=== PATIENT | male | born 1945 | race Caucasian/White ===

== ENCOUNTER 2016-05-09 17:45 | Inpatient (IN) | payer OTHER ==
[~2016-05-09] VITALS: Ht 162.6 cm; Wt 59.0 kg
[2016-05-09 17:50] VITALS: BP 131/76; PULSE 124; RESP 16; TEMP 99.1
[2016-05-09 18:17] LABS: MEAN CORPUSCULAR HEMOGLOBIN 31 pg (27-31)
[2016-05-09 18:20] LABS: MEAN CORPUSCULAR HGB CONC 35 % (32-36)
[2016-05-09 18:26] LABS: HEMATOCRIT 30.7 % (36-54); HEMOGLOBIN 10.6 g/dL (14.0-18.0); MEAN CORPUSCULAR VOLUME 90 fL (79.0-98.0); PLATELET COUNT (AUTO) 171 K/uL (130-430); RED BLOOD CELL COUNT(AUTO) 3.43 MIL/uL (4.2-6.2); WHITE BLOOD COUNT (AUTO) 17.1 K/uL (4.8-10.8)
[2016-05-09] MEDS ORDERED: PROC10TA I.M. (18:28)
[2016-05-09] MEDS ORDERED: DULR10 RC (18:28)
[2016-05-09] MEDS ORDERED: NA P118E RC (18:28)
[2016-05-09] MEDS ORDERED: MEGE400O PO (18:28)
[2016-05-09] MEDS ORDERED: MAGN400O4 PO (18:28)
[2016-05-09] MEDS ORDERED: TRAM50TA92 PO (18:28)
[2016-05-09 18:31] LABS: ANION GAP 12 (5-15); CALCIUM 8.6 mg/dL (8.4-11.0); CHLORIDE 112 mmol/L (98-107); CREATININE 2.73 mg/dL (0.55-1.30); GLUCOSE 136 mg/dL (70-99); INR 1.1 (0.80-1.20); POTASSIUM 3.5 mmol/L (3.5-5.1); PROTHROMBIN TIME 11.5 SECS (9.5-12.5); SODIUM SERUM 144 mmol/L (136-145); UREA NITROGEN, BLOOD 44 mg/dL (8-21)
[2016-05-09 18:34] LABS: ALANINE AMINOTRANSFERASE 60 U/L (12-78); ALBUMIN 1.7 g/dL (3.4-4.8); ASPARTATE AMINOTRANSFERASE 60 U/L (10-37); TOTAL BILIRUBIN 2.1 mg/dL (0.0-1.0); TOTAL PROTEIN, SERUM 7.3 g/dL (6.4-8.3)
[2016-05-09 18:44] LABS: ATYPICAL LYMPHOCYTES % 0 % (0-0); BAND % (MANUAL) 15 % (0-6); BASOPHILS % (MANUAL) 0 % (0-2); EOSINOPHILS % (MANUAL) 0 % (0-7); LYMPHOCYTES % (MANUAL) 2 % (20-46); MONOCYTES % (MANUAL) 5 % (0-11)
[2016-05-09 18:52] LABS: BILIRUBIN,URINE NEGATIVE (NEGATIVE); BLOOD, URINE 2+ (NEGATIVE); CLARITY/URINE CLOUDY (CLEAR); COLOR,URINE YELLOW (YELLOW); GLUCOSE,URINE NEGATIVE (NEGATIVE); KETONES,URINE NEGATIVE (NEGATIVE); LEUKOCYTE ESTERASE ,URINE 3+ (NEGATIVE); NITRITE, URINE POSITIVE (NEGATIVE); PROTEIN URINE TRACE (NEGATIVE)
[2016-05-09] MEDS ORDERED: NACL 0.9% 1,000 ML IV ONE (19:00)
[2016-05-09] MEDS ORDERED: LEVOFLOXACIN 500 MG/D5W 100 ML IV ONE (19:00)
[2016-05-09 19:08] LABS: BACTERIA,URINE MANY /HPF (None Seen); WBC,URINE >100 /HPF (0-3)
[2016-05-09 19:09] LABS: MUCUS,URINE None Seen /LPF (None Seen); URINE AMORPHOUS URATE 2+ /HPF (None Seen)
[2016-05-09] MEDS ORDERED: MILK OF MAGNESIA 30 ML UDC PO PRN (19:45)
[2016-05-09] MEDS ORDERED: NA PHOS,M-B/NA PHOS,DI-BA 118 ML (FLEET ENEMA) RC PRN (19:45)
[2016-05-09] MEDS ORDERED: traMADol HCL HCL 50 MG TABLET (ULTRAM) PO PRN (19:45)
[2016-05-09] MEDS ORDERED: PROCHLORPERAZINE MALEATE 10 MG TABLET PO PRN (19:45)
[2016-05-09] MEDS ORDERED: BISACODYL 10 MG/SUPPOSITORY RC PRN (19:45)
[2016-05-09 20:25] VITALS: BP 113/67; PULSE 105; RESP 20; TEMP 98.7; O2SAT 96
[2016-05-09] MEDS ORDERED: KCL 20 mEq in 100 mL (PREMIX) 100 ML IV ONE (21:35)
[2016-05-09] MEDS: KCL 20 mEq in 0.45% NS 1000 mL 1,000 ML IV SCH (22:08)
[2016-05-09] MEDS: MEROPENEM 500 MG IVPB PREMIX 50 ML IV SCH (22:09)
[2016-05-09] MEDS: MEGESTROL ACETATE 400 MG/10 ML UDC PO SCH (22:26)
[2016-05-10 00:58] VITALS: BP_SYST 103; BP_SYST 129; BP_DIAS 54; BP_DIAS 58; PULSE 57; PULSE 87; RESP 17; RESP 18; TEMP 96.6; O2SAT 94; O2SAT 97
[2016-05-10 04:00] VITALS: BP 111/63; PULSE 75; RESP 18; TEMP 97.6; O2SAT 98
[2016-05-10] MEDS: MEROPENEM 500 MG IVPB PREMIX 50 ML IV SCH (05:20)
[2016-05-10 07:34] LABS: BASOPHILS % (AUTO) 0.1 % (0.0-2.0); EOSINOPHILS # (AUTO) 0.1 K/uL (0.0-0.4); EOSINOPHILS % (AUTO) 0.6 % (0.0-4.0); HEMATOCRIT 29.5 % (36-54); HEMOGLOBIN 9.9 g/dL (14.0-18.0); LYMPHOCYTES # (AUTO) 0.5 K/uL (1.0-5.5); LYMPHOCYTES % (AUTO) 3.1 % (20.5-51.5); MEAN CORPUSCULAR HEMOGLOBIN 31 pg (27-31); MEAN CORPUSCULAR HGB CONC 34 % (32-36); MEAN CORPUSCULAR VOLUME 92 fL (79.0-98.0); MONOCYTES # (AUTO) 0.9 K/uL (0.0-1.0); MONOCYTES % (AUTO) 5.3 % (1.7-9.3); NEUTROPHILS # (AUTO) 14.8 K/uL (1.8-7.7); NEUTROPHILS % (AUTO) 90.9 % (40.0-70.0); PLATELET COUNT (AUTO) 149 K/uL (130-430); RED BLOOD CELL COUNT(AUTO) 3.21 MIL/uL (4.2-6.2); RED CELL DISTRIBUTION WIDTH 14.3 % (9.0-15.0); WHITE BLOOD COUNT (AUTO) 16.3 K/uL (4.8-10.8)
[2016-05-10 07:48] LABS: ANION GAP 7 (5-15); CALCIUM 9.1 mg/dL (8.4-11.0); CHLORIDE 119 mmol/L (98-107); GLUCOSE 108 mg/dL (70-99); POTASSIUM 3.8 mmol/L (3.5-5.1); SODIUM SERUM 152 mmol/L (136-145); UREA NITROGEN, BLOOD 37 mg/dL (8-21)
[2016-05-10 08:00] VITALS: BP 146/78; PULSE 79; RESP 17; TEMP 97.4; O2SAT 97
[2016-05-10] MEDS: MEGESTROL ACETATE 400 MG/10 ML UDC PO SCH ×2 (08:55→20:15)
[2016-05-10] MEDS: KCL 20 mEq in 0.45% NS 1000 mL 1,000 ML IV SCH (11:48)
[2016-05-10 12:00] VITALS: BP 142/80; PULSE 83; RESP 20; TEMP 98.6; O2SAT 97
[2016-05-10] MEDS ORDERED: GENTAMICIN 100 mg/50 mL NS 50 ML IV ONE (12:00)
[2016-05-10] MEDS ORDERED: CEFEPIME 1 GM in D5W 50 ML IV ONE (13:00)
[2016-05-10 16:00] VITALS: BP 150/89; PULSE 77; RESP 21; TEMP 97.2; O2SAT 98
[2016-05-10 20:00] VITALS: BP 110/65; PULSE 99; RESP 18; TEMP 96.8; O2SAT 96
[2016-05-11 00:31] VITALS: BP 120/70; PULSE 69; RESP 17; TEMP 97.1; O2SAT 91
[2016-05-11] MEDS: KCL 20 mEq in 0.45% NS 1000 mL 1,000 ML IV SCH ×2 (00:50→15:07)
[2016-05-11 05:12] VITALS: BP 111/63; PULSE 72; RESP 17; TEMP 97.2; O2SAT 89
[2016-05-11 07:10] LABS: HEMATOCRIT 28.6 % (36-54); HEMOGLOBIN 9.6 g/dL (14.0-18.0); MEAN CORPUSCULAR HEMOGLOBIN 31 pg (27-31); MEAN CORPUSCULAR HGB CONC 34 % (32-36); MEAN CORPUSCULAR VOLUME 92 fL (79.0-98.0); PLATELET COUNT (AUTO) 146 K/uL (130-430); RED CELL DISTRIBUTION WIDTH 14.1 % (9.0-15.0)
[2016-05-11 07:18] LABS: WHITE BLOOD COUNT (AUTO) 11.6 K/uL (4.8-10.8)
[2016-05-11 07:32] LABS: ANION GAP 5 (5-15); CALCIUM 8.6 mg/dL (8.4-11.0); CHLORIDE 114 mmol/L (98-107); CREATININE 1.59 mg/dL (0.55-1.30); GLUCOSE 87 mg/dL (70-99); POTASSIUM 3.4 mmol/L (3.5-5.1); SODIUM SERUM 145 mmol/L (136-145); UREA NITROGEN, BLOOD 25 mg/dL (8-21)
[2016-05-11 08:00] VITALS: BP 147/84; PULSE 79; RESP 17; TEMP 97.6; O2SAT 98
[2016-05-11] MEDS: MEGESTROL ACETATE 400 MG/10 ML UDC PO SCH ×2 (09:00→21:27)
[2016-05-11] MEDS: CEFEPIME 1 GM in D5W 50 ML IV SCH (09:00)
[2016-05-11 09:42] LABS: ATYPICAL LYMPHOCYTES % 0 % (0-0); BAND % (MANUAL) 0 % (0-6); BASOPHILS % (MANUAL) 0 % (0-2); EOSINOPHILS % (MANUAL) 1 % (0-7); LYMPHOCYTES % (MANUAL) 12 % (20-46); MONOCYTES % (MANUAL) 9 % (0-11)
[2016-05-11 12:26] VITALS: BP 147/82; PULSE 73; RESP 16; TEMP 97.6; O2SAT 96
[2016-05-11] MEDS ORDERED: POTASSIUM CHLORIDE 40 MEQ in NS 250 ML IV ONE (14:15)
[2016-05-11 15:22] VITALS: BP 126/67; PULSE 74; RESP 16; TEMP 97.5; O2SAT 96
[2016-05-11 15:35] VITALS: Ht 162.6 cm; Wt 59.0 kg
[2016-05-11 20:14] VITALS: BP 132/71; PULSE 75; RESP 18; TEMP 98.2; O2SAT 97
[2016-05-12 01:01] VITALS: BP 126/69; PULSE 70; RESP 17; TEMP 98.6; O2SAT 96
[2016-05-12] MEDS: KCL 20 mEq in 0.45% NS 1000 mL 1,000 ML IV SCH ×2 (05:54→17:49)
[2016-05-12 05:55] VITALS: BP 130/66; PULSE 68; RESP 17; TEMP 98; O2SAT 99
[2016-05-12 08:00] VITALS: BP 143/87; PULSE 89; RESP 17; TEMP 97.9; O2SAT 98
[2016-05-12] MEDS: MEGESTROL ACETATE 400 MG/10 ML UDC PO SCH ×2 (09:50→21:50)
[2016-05-12] MEDS: CEFEPIME 1 GM in D5W 50 ML IV SCH (09:51)
[2016-05-12 11:43] VITALS: BP 137/78; PULSE 83; RESP 22; TEMP 98.5; O2SAT 98
[2016-05-12 16:04] VITALS: BP 138/72; PULSE 72; RESP 20; TEMP 98.2; O2SAT 97
[2016-05-12 23:30] VITALS: BP 135/71; PULSE 58; RESP 16; TEMP 97.6; O2SAT 97
[2016-05-13 03:52] VITALS: BP 112/65; PULSE 64; RESP 16; TEMP 97; O2SAT 98
[2016-05-13] MEDS: KCL 20 mEq in 0.45% NS 1000 mL 1,000 ML IV SCH (05:50)
[2016-05-13 08:00] VITALS: BP 114/62; PULSE 80; RESP 17; TEMP 98.2; O2SAT 98
[2016-05-13] MEDS: MEGESTROL ACETATE 400 MG/10 ML UDC PO SCH (10:06)
[2016-05-13] MEDS: CEFEPIME 1 GM in D5W 50 ML IV SCH (10:06)
[2016-05-13 12:06] VITALS: BP 109/58; PULSE 77; RESP 18; TEMP 97.9; O2SAT 98
[2016-05-13 15:40] VITALS: BP 109/58; PULSE 77; RESP 18; TEMP 97.9; O2SAT 98
[2016-05-13 16:09] VITALS: BP 125/68; PULSE 85; RESP 18; TEMP 98.6; O2SAT 98
[2016-05-13] MEDS ORDERED: LACTOBACILLUS RHAMNOSUS GG 1 CAP CAPSULE PO SCH (21:00)
[2016-05-14] MEDS ORDERED: LEVOFLOXACIN 250 MG TABLET PO SCH (10:00)
== END 2016-05-13 16:51 | DRG 720 ==
LOC: SED 17:45 → STU 19:38
PROVIDERS: ADMIT Family Medicine; ATTEND Family Medicine
DX: A41.59 Other Gram-negative sepsis (principal); N17.0 Acute kidney failure with tubular necrosis; E43 Unspecified severe protein-calorie malnutrition; I69.351 Hemiplegia and hemiparesis following cerebral infarction affecting right dominant side; N39.0 Urinary tract infection, site not specified; D63.8 Anemia in other chronic diseases classified elsewhere; E86.0 Dehydration; N12 Tubulo-interstitial nephritis, not specified as acute or chronic; I12.9 Hypertensive chronic kidney disease with stage 1 through stage 4 chronic kidney disease, or unspecified chronic kidney disease; N18.9 Chronic kidney disease, unspecified; Z88.0 Allergy status to penicillin; Z79.899 Other long term (current) drug therapy; Z68.22 Body mass index [BMI] 22.0-22.9, adult
CPT/HCPCS: 36415; 71010; 74000-TC; 80048; 80053; 81000-TC; 83605; 83874; 84484; 85007; 85025; 85027; 85610-TC; 85730-TC; 87040-TC; 87081; 87086; 87186-TC; 93005; 96365; 99291; J0692; J1580; J1956; J2185; J3480; J7030; J7050; J7060; Q0164

== ENCOUNTER 2018-02-28 05:23 | Inpatient (IN) | payer OTHER ==
[~2018-02-28] VITALS: Ht 162.6 cm; Wt 68.5 kg
[2018-02-28 05:23] VITALS: BP_SYST 149
[~2018-02-28 05:23] MED LIST: DULR10 RC; MEGE400O PO; MOM PO; NA P118E RC; PROC10TA13 I.M.; TRAM50TA92 PO
[2018-02-28] MEDS ORDERED: ACET325C PO (05:48)
[2018-02-28] MEDS ORDERED: ACET-2165 PO (05:49)
[2018-02-28] MEDS ORDERED: DOCU250C14 PO (05:50)
[2018-02-28] MEDS ORDERED: NOR10 PO (05:52)
[2018-02-28] MEDS ORDERED: FAMO40TA71 PO (05:53)
[2018-02-28] MEDS ORDERED: SENN8.6T19 PO (05:53)
[2018-02-28] MEDS ORDERED: PANTOPRAZOLE SODIUM 40 MG/VIAL (PROTONIX) IVP ONE (06:00)
[2018-02-28] MEDS ORDERED: ONDANSETRON HCL 4 MG/2 ML VIAL IVP ONE (06:00)
[2018-02-28] MEDS ORDERED: NACL 0.9% 1,000 ML IV ONE (06:00)
[2018-02-28 06:09] LABS: BASOPHILS # (AUTO) 0.1 K/uL (0.0-0.2); BASOPHILS % (AUTO) 0.5 % (0.0-2.0); HEMATOCRIT 45.7 % (36-54); HEMOGLOBIN 15.3 g/dL (14.0-18.0); LYMPHOCYTES # (AUTO) 0.5 K/uL (1.0-5.5); LYMPHOCYTES % (AUTO) 3.9 % (20.5-51.5); MEAN CORPUSCULAR HEMOGLOBIN 31 pg (27-31); MEAN CORPUSCULAR HGB CONC 33 % (32-36); MEAN CORPUSCULAR VOLUME 93 fL (79.0-98.0); MONOCYTES # (AUTO) 0.3 K/uL (0.0-1.0); MONOCYTES % (AUTO) 1.9 % (1.7-9.3); NEUTROPHILS # (AUTO) 12.6 K/uL (1.8-7.7); NEUTROPHILS % (AUTO) 93.7 % (40.0-70.0); PLATELET COUNT (AUTO) 484 K/uL (130-430); RED BLOOD CELL COUNT(AUTO) 4.94 MIL/uL (4.2-6.2); RED CELL DISTRIBUTION WIDTH 12.3 % (9.0-15.0); WHITE BLOOD COUNT (AUTO) 13.5 K/uL (4.8-10.8)
[2018-02-28] MEDS ORDERED: LEVOFLOXACIN 500 MG/D5W 100 ML IV ONE (06:15)
[2018-02-28 06:16] LABS: CHLORIDE 103 mmol/L (98-107); POTASSIUM 3.7 mmol/L (3.5-5.1); UREA NITROGEN, BLOOD 23 mg/dL (8-21)
[2018-02-28 06:17] LABS: BILIRUBIN,URINE NEGATIVE (NEGATIVE); BLOOD, URINE 2+ (NEGATIVE); COLOR,URINE YELLOW (YELLOW); GLUCOSE,URINE NEGATIVE (NEGATIVE); KETONES,URINE NEGATIVE (NEGATIVE); LEUKOCYTE ESTERASE ,URINE 3+ (NEGATIVE); NITRITE, URINE POSITIVE (NEGATIVE); PH,URINE 6.5 (5.0-8.0); PROTEIN URINE NEGATIVE (NEGATIVE); UROBILINOGEN,URINE 0.2 (0.2-1.0)
[2018-02-28 06:17] LABS: ALBUMIN 3.4 g/dL (3.4-4.8)
[2018-02-28 06:22] LABS: ANION GAP 11 (5-15); CALCIUM 9.7 mg/dL (8.4-11.0); CREATININE 1.54 mg/dL (0.55-1.30); GLUCOSE 190 mg/dL (70-99); SODIUM SERUM 139 mmol/L (136-145)
[2018-02-28 06:25] LABS: BACTERIA,URINE MODERATE /HPF (None Seen); RBC,URINE 20-50 /HPF (0-3); WBC,URINE 80-100 /HPF (0-3)
[2018-02-28 06:26] LABS: ALANINE AMINOTRANSFERASE 30 U/L (12-78); ASPARTATE AMINOTRANSFERASE 15 U/L (10-37); TOTAL BILIRUBIN 0.4 mg/dL (0.0-1.0)
[2018-02-28 06:30] LABS: PROTHROMBIN TIME 10.4 SECS (9.5-12.5)
[2018-02-28 06:50] LABS: CLARITY/URINE SLIGHTLY HAZY (CLEAR)
[2018-02-28] MEDS ORDERED: KCL 20 mEq in D5/0.45NS 1000mL 1,000 ML IV SCH (07:00)
[2018-02-28] MEDS ORDERED: ONDANSETRON HCL 4 MG/2 ML VIAL IVP PRN (07:00)
[2018-02-28] MEDS ORDERED: NACL 0.9% 1,500 ML IV ONE (07:15)
[2018-02-28 07:45] VITALS: BP_SYST 121
[2018-02-28] MEDS: KCL 20 mEq in D5/0.45NS 1000mL 1,000 ML IV SCH ×2 (10:19→20:18)
[2018-02-28 11:54] VITALS: BP_SYST 113
[2018-02-28 12:47] VITALS: BP_SYST 122
[2018-02-28 16:25] VITALS: BP_SYST 119
[2018-02-28 19:15] VITALS: BP_SYST 122
[2018-02-28] MEDS: PANTOPRAZOLE SODIUM 40 MG/VIAL (PROTONIX) IVP SCH (20:18)
[2018-03-01 01:34] VITALS: BP_SYST 109
[2018-03-01] MEDS: KCL 20 mEq in D5/0.45NS 1000mL 1,000 ML IV SCH ×2 (06:15→15:33)
[2018-03-01 06:52] LABS: ANION GAP 5 (5-15); CHLORIDE 111 mmol/L (98-107); CREATININE 1.16 mg/dL (0.55-1.30); GLUCOSE 103 mg/dL (70-99); POTASSIUM 4.4 mmol/L (3.5-5.1); SODIUM SERUM 142 mmol/L (136-145); UREA NITROGEN, BLOOD 11 mg/dL (8-21)
[2018-03-01 06:55] LABS: BASOPHILS # (AUTO) 0.1 K/uL (0.0-0.2); BASOPHILS % (AUTO) 1.4 % (0.0-2.0); EOSINOPHILS # (AUTO) 0.2 K/uL (0.0-0.4); HEMATOCRIT 38.7 % (36-54); HEMOGLOBIN 12.6 g/dL (14.0-18.0); LYMPHOCYTES % (AUTO) 21.9 % (20.5-51.5); MEAN CORPUSCULAR HEMOGLOBIN 30 pg (27-31); MEAN CORPUSCULAR HGB CONC 33 % (32-36); MEAN CORPUSCULAR VOLUME 94 fL (79.0-98.0); MONOCYTES # (AUTO) 0.6 K/uL (0.0-1.0); MONOCYTES % (AUTO) 6.6 % (1.7-9.3); NEUTROPHILS # (AUTO) 6.2 K/uL (1.8-7.7); NEUTROPHILS % (AUTO) 68.1 % (40.0-70.0); PLATELET COUNT (AUTO) 372 K/uL (130-430); RED BLOOD CELL COUNT(AUTO) 4.13 MIL/uL (4.2-6.2); RED CELL DISTRIBUTION WIDTH 12.2 % (9.0-15.0); WHITE BLOOD COUNT (AUTO) 9.1 K/uL (4.8-10.8)
[2018-03-01] MEDS: MIDAZOLAM HCL 5 MG/5 ML VIAL ONE ×3 (07:16→08:14)
[2018-03-01] MEDS: MEPERIDINE HCL/PF 25 MG/ML DISP.SYRIN ONE ×4 (07:16→08:14)
[2018-03-01] MEDS ORDERED: SIMETHICONE 40 MG/0.6 ML ML ONE (07:17)
[2018-03-01] MEDS ORDERED: MEPERIDINE HCL/PF 25 MG/ML DISP.SYRIN ONE (07:17)
[2018-03-01 08:00] VITALS: BP_SYST 116
[2018-03-01] MEDS: PANTOPRAZOLE SODIUM 40 MG/VIAL (PROTONIX) IVP SCH ×2 (09:55→20:31)
[2018-03-01 12:02] VITALS: BP_SYST 119
[2018-03-01] MEDS: LEVOFLOXACIN 500 MG/D5W 100 ML IV SCH (13:47)
[2018-03-01 16:02] VITALS: BP_SYST 130
[2018-03-01 19:10] VITALS: BP_SYST 111
[2018-03-01 23:15] VITALS: BP_SYST 115
[2018-03-02] MEDS: KCL 20 mEq in D5/0.45NS 1000mL 1,000 ML IV SCH ×3 (05:44→21:41)
[2018-03-02 07:08] LABS: BASOPHILS % (AUTO) 0.6 % (0.0-2.0); EOSINOPHILS # (AUTO) 0.3 K/uL (0.0-0.4); EOSINOPHILS % (AUTO) 3.8 % (0.0-4.0); HEMATOCRIT 37.7 % (36-54); HEMOGLOBIN 12.8 g/dL (14.0-18.0); LYMPHOCYTES # (AUTO) 1.5 K/uL (1.0-5.5); LYMPHOCYTES % (AUTO) 19.1 % (20.5-51.5); MEAN CORPUSCULAR HEMOGLOBIN 31 pg (27-31); MEAN CORPUSCULAR HGB CONC 34 % (32-36); MEAN CORPUSCULAR VOLUME 92 fL (79.0-98.0); MONOCYTES # (AUTO) 0.7 K/uL (0.0-1.0); MONOCYTES % (AUTO) 8.5 % (1.7-9.3); NEUTROPHILS # (AUTO) 5.6 K/uL (1.8-7.7); PLATELET COUNT (AUTO) 291 K/uL (130-430); RED BLOOD CELL COUNT(AUTO) 4.12 MIL/uL (4.2-6.2); RED CELL DISTRIBUTION WIDTH 12.2 % (9.0-15.0); WHITE BLOOD COUNT (AUTO) 8.1 K/uL (4.8-10.8)
[2018-03-02 07:09] LABS: ANION GAP 8 (5-15); CALCIUM 9.1 mg/dL (8.4-11.0); CHLORIDE 106 mmol/L (98-107); CREATININE 1.26 mg/dL (0.55-1.30); GLUCOSE 101 mg/dL (70-99); SODIUM SERUM 140 mmol/L (136-145); UREA NITROGEN, BLOOD 13 mg/dL (8-21)
[2018-03-02 08:00] VITALS: BP_SYST 132
[2018-03-02] MEDS: PANTOPRAZOLE SODIUM 40 MG/VIAL (PROTONIX) IVP SCH ×2 (08:54→20:30)
[2018-03-02 12:02] VITALS: BP_SYST 121
[2018-03-02] MEDS: LEVOFLOXACIN 500 MG/D5W 100 ML IV SCH (12:44)
[2018-03-02 16:02] VITALS: BP_SYST 138
[2018-03-02] MEDS: SULFAMETHOXAZOLE/TRIMETHOPR DS 1 TABLET PO SCH (20:30)
[2018-03-02 20:57] VITALS: BP_SYST 132
[2018-03-03 00:10] VITALS: BP_SYST 107
[2018-03-03] MEDS: KCL 20 mEq in D5/0.45NS 1000mL 1,000 ML IV SCH ×2 (02:56→15:08)
[2018-03-03 06:51] LABS: ANION GAP 8 (5-15); CHLORIDE 105 mmol/L (98-107); CREATININE 1.32 mg/dL (0.55-1.30); GLUCOSE 91 mg/dL (70-99); POTASSIUM 3.9 mmol/L (3.5-5.1); SODIUM SERUM 140 mmol/L (136-145); UREA NITROGEN, BLOOD 18 mg/dL (8-21)
[2018-03-03 06:56] LABS: BASOPHILS # (AUTO) 0.1 K/uL (0.0-0.2); BASOPHILS % (AUTO) 1.8 % (0.0-2.0); EOSINOPHILS # (AUTO) 0.2 K/uL (0.0-0.4); EOSINOPHILS % (AUTO) 3.2 % (0.0-4.0); HEMATOCRIT 38.4 % (36-54); HEMOGLOBIN 12.5 g/dL (14.0-18.0); LYMPHOCYTES # (AUTO) 1.4 K/uL (1.0-5.5); LYMPHOCYTES % (AUTO) 18.8 % (20.5-51.5); MEAN CORPUSCULAR HEMOGLOBIN 31 pg (27-31); MEAN CORPUSCULAR HGB CONC 33 % (32-36); MEAN CORPUSCULAR VOLUME 93 fL (79.0-98.0); MONOCYTES # (AUTO) 0.6 K/uL (0.0-1.0); MONOCYTES % (AUTO) 8.1 % (1.7-9.3); NEUTROPHILS # (AUTO) 5.1 K/uL (1.8-7.7); NEUTROPHILS % (AUTO) 68.1 % (40.0-70.0); PLATELET COUNT (AUTO) 293 K/uL (130-430); RED BLOOD CELL COUNT(AUTO) 4.11 MIL/uL (4.2-6.2); RED CELL DISTRIBUTION WIDTH 12.2 % (9.0-15.0); WHITE BLOOD COUNT (AUTO) 7.4 K/uL (4.8-10.8)
[2018-03-03 08:08] VITALS: BP_SYST 129
[2018-03-03] MEDS: SULFAMETHOXAZOLE/TRIMETHOPR DS 1 TABLET PO SCH (08:48)
[2018-03-03] MEDS: PANTOPRAZOLE SODIUM 40 MG/VIAL (PROTONIX) IVP SCH (08:48)
[2018-03-03 12:02] VITALS: BP_SYST 117
[2018-03-03 15:15] VITALS: BP_SYST 113
[2018-03-03 19:25] VITALS: BP_SYST 126
[2018-03-03 20:00] VITALS: BP_SYST 126
== END 2018-03-03 20:15 | DRG 241 ==
LOC: SED 05:23 → SMU 06:55
PROVIDERS: ADMIT Family Medicine; ATTEND Family Medicine
PROC: 0DB78ZX Excision of Stomach, Pylorus, Via Natural or Artificial Opening Endoscopic, Diagnostic (ICD-10-PCS; principal; 2018-03-01 08:00)
DX: K29.71 Gastritis, unspecified, with bleeding (principal); N17.0 Acute kidney failure with tubular necrosis; I69.351 Hemiplegia and hemiparesis following cerebral infarction affecting right dominant side; R47.01 Aphasia; D50.0 Iron deficiency anemia secondary to blood loss (chronic); F19.10 Other psychoactive substance abuse, uncomplicated; K92.0 Hematemesis; E86.0 Dehydration; I10 Essential (primary) hypertension; K20.9 Esophagitis, unspecified; K44.9 Diaphragmatic hernia without obstruction or gangrene; N39.0 Urinary tract infection, site not specified; Z88.0 Allergy status to penicillin; Z79.899 Other long term (current) drug therapy
CPT/HCPCS: 36415; 43239; 71045; 80048; 80053; 81000-TC; 82140-TC; 83605; 83735-TC; 84484; 85025; 85610-TC; 85730-TC; 87040-TC; 87081; 87086; 87186-TC; 88305; 88312; 88313; 93005; 96365; 96375; 99285; C9113; J1956; J2175; J2250; J2405

== ENCOUNTER 2022-02-06 17:04 | Emergency (ER) | payer OTHER ==
[~2022-02-06] VITALS: Ht 172.7 cm; Wt 59.0 kg
[~2022-02-06 17:04] MED LIST changes: +ACET325C5 PO; +ACET325T PO; +DOCU250C14 PO; +FAMO40TA71 PO; -MEGE400O PO; +NOR10 PO; -PROC10TA13 I.M.; +SENN8.6T19 PO; -TRAM50TA92 PO
[2022-02-06 17:36] VITALS: BP_SYST 110
--- NOTE | 2022-02-06 19:01 | NUR ---
Pt bib bls to ER CC urinary retention RT abdominal pain. Pt is non verbal aox2, skin intact, BLS notes minimal urinary output for past 24 hours. Pt communicates minimally, occitan speaking incomplete sentences is pt baseline.
--- NOTE | 2022-02-06 19:07 | NUR ---
MD procedure changed Gtube, pt tolerated well.
--- NOTE | 2022-02-06 19:07 | NUR ---
ER at bedside examining patient.
--- NOTE | 2022-02-06 19:08 | NUR ---
Urinary return of 200 mls. pt resting in bed without complaint.
--- NOTE | 2022-02-06 19:17 | NUR ---
Report given to Maureen WILSON . Noted covid positive.
--- NOTE | 2022-02-06 20:35 | NUR ---
PT IS IN BED, AWAKE,ALERT & VERBALLY RESPONSIVE. NAD, AFEBRILE. DENIES SALOME/P SUPRAPUBIC CATHETER REPLACEMENT DRAINING YELLOW URINE, NO SEDIMENTS NOTED. SAFE & HAZARD FREE ENVIRONMENT PROVIDED. ON ISOLATION FOR COVID + CAREFULLY OBSERVED & PRACTICED.
[2022-02-06 22:23] VITALS: BP_SYST 144
--- NOTE | 2022-02-06 22:26 | NUR ---
Patient given written and verbal discharge instructions and verbalizes understanding.ALL DOCUMENTS PROVIDED TO [facility]. ER MD DR. MULLEN discussed with patient the results and treatment provided. Patient in stable condition. ID arm band removed. Patient educated on pain management and to follow up with PMD. Pain Scale 0/10. Opportunity for questions provided and answered. Medication side effect fact sheet provided. Pt was picked up by [facility]/ 2 [facility]. REPORT GIVEN. PT LEFT IN STABLE CONDITION VIA GURNEY.
== END 2022-02-06 22:25 | disposition home or self-care (01) ==
LOC: SED 17:04
DX: T83.511A Infection and inflammatory reaction due to indwelling urethral catheter, initial encounter (principal); R33.9 Retention of urine, unspecified; R10.30 Lower abdominal pain, unspecified; R50.9 Fever, unspecified; K21.9 Gastro-esophageal reflux disease without esophagitis; I11.0 Hypertensive heart disease with heart failure; I50.9 Heart failure, unspecified; Z88.0 Allergy status to penicillin; Z79.899 Other long term (current) drug therapy
CPT/HCPCS: 99284